=== PATIENT | male | born 1980 | race Caucasian/White ===

== ENCOUNTER → 2018-03-30 | Outpatient (CLI) | payer BC ==
[2018-03-30 14:24] VITALS: BP 121/71
--- NOTE | 2018-03-30 14:24 | Cardiology Stress Test Report ---
Stress Test Report Date of Procedure/Referring: Date of Procedure: Mar 30, 2018 PCP Annie Tamayo MD Admitting Physician Phoenix Simon DO Indications: Family history of heart disease Baseline Heart Rate: 67 Baseline Blood Pressure: Blood Pressure Systolic: 121 Blood Pressure Diastolic: 71 Baseline EKG: Baseline EKG: normal sinus rhythm with no abnormality Summary/Conclusion: Summary: In summary, the patient started exercising with a baseline heart rate, blood pressure and EKG mentioned above Patient was able to exercise for a total of 10 minutes on Javid protocol, 11.7 METs Maximum heart rate 1 74 bpm, 95 percent of max Maximum blood pressure 212/47 Stress EKG Minimal nondiagnostic changes Recovery EKG Return to baseline Conclusion: 1. Good exercise tolerance for a total of 10 minutes on Javid protocol, 11.7 METs, achieving percent of maximum expected heart rate 2. Minimal nondiagnostic EKG changes with exercise returned to baseline during recovery 3. No arrhythmia was noted 4. Hypertensive response to exercise returned to baseline during recovery ANNIE TAMAYO MD Mar 30, 2018 14:24
== END ==
LOC: CARD 09:54
PROVIDERS: ATTEND Internal Medicine Cardiovascular Disease
DX: Z82.49 Family history of ischemic heart disease and other diseases of the circulatory system (principal)
CPT/HCPCS: 93017